=== PATIENT | male | born 1955 | race Caucasian/White ===

== ENCOUNTER 2023-09-02 21:19 | Observation (INO) | payer OTHER, SELFPAY ==
[2023-09-02] VITALS (8 sets, daily range): BP systolic 125–182; BP diastolic 75–97; BMI 16.1
--- NOTE | 2023-09-02 15:22 | ED.GENMED ---
History of Present Illness
General
Chief Complaint: Abdominal Symptoms
Source: patient
Exam Limitations: none
Time Seen by Provider: 09/02/23 15:03
Nursing documentation reviewed up to this point in time: agreed with
Travel History
Have you had any contact with someone who has COVID-19?: No
Do you have any symptoms of coronavirus? Fever > 100 degrees, chills, cough, shortness of breath, sore throat, loss of taste or smell, muscle aches, or headache?: No
History of Present Illness
History of Present Illness:
67-year-old male with past medical history of multiple abdominal surgeries after being diagnosed with multiple esophageal and gastric cancers is status post esophageal replacement as well as GJ tube placement in 2021 gastric bypass in 2021. Does
occasionally have discomfort flares does take oxycodone daily but ran out recently. He claims his last dose was this morning. Denies any chest pain has had intermittent vomiting has had ongoing nausea is able to consume by mouth does occasionally
use the GJ tube but claims that the GE tube portion of the GJ tube is currently clogged. The J-tube is currently working.
Past History
Past History
ED Past Medical History: Other (Questional Thorpe's esophagus)
ED Past Surgical History: Other (Fundoplication 08/2019 at [facility], gastric bypass surgery October 2021 in [place]. Has a G-tube)
Social History
Tobacco: Non-smoker
Alcohol: None
Personal: Single
Living: homeless
Employment: Not employed
Review of Systems
Review of Systems
Allergies reviewed?: Yes
All Other Systems: ROS reviewed and negative except as documented in HPI and ROS
Phy Exam
Physical Exam
Physical Exam:
GENERAL: Alert , in no apparent distress
EYE: pupils equal and reactive
NECK: Supple, no significant adenopathy.
ENT: o/p clr, mmm.
CARDIAC: Regular rate and rhythm .
LUNGS: Clear breath sounds bilaterally, no acute respiratory distress, no wheezes/rales/rhonchi
ABDOMEN: Discomfort to light palpation throughout the abdomen GJ tube placed no surrounding redness or warmth. Central incision to the abdomen
NEUROLOGICAL: Alert and oriented, no focal neuro deficits
SKIN: Warm and dry, skin intact.
MUSCULOSKELETAL: No edema, well perfused.
PSYCH: Normal and appropriate interaction.
Course
Orders/Labs/Results
Orders:
Orders
09/02/23 15:18
0.9% Sodium Chloride 1000 ml [Nss] 1,000 ml IV BOLUS
HYDROmorphone [Dilaudid] 1 mg IV NOW STA
Iohexol [Omnipaque] See Protocol PO NOW STA
Ondansetron Injectable [Zofran] 4 mg IV NOW STA
09/02/23 15:19
CT Abd/pel W Iv And Oral Contr Urgent
Comment:
Reason For Exam: abd pain, hx of esopageal replacement, fundoplicat
09/02/23 15:36
Complete Blood Count/With Diff Urgent
Comprehensive Metabolic Panel Urgent
09/02/23 15:38
EKG [Electrocardiogram (*1)] Urgent
Reason for Study: Abdominal Pain
EKG- Treatment ONCE
09/02/23 17:11
Urinalysis Reflex To Culture Urgent
Date Specimen was Collected: 09/02/23
Time Specimen was Collected: 17:09
09/02/23 17:16
HYDROmorphone [Dilaudid] 1 mg .ROUTE .STK-MED ONE
09/02/23 17:17
HYDROmorphone [Dilaudid] 1 mg IV NOW STA
09/02/23 17:56
Ondansetron Injectable [Zofran] 4 mg IV NOW STA
09/02/23 20:20
Potassium Chloride [KCl] 20 meq 0.9% Sodium Chloride 150 ml [Nss] 150 ml IV NOW
Abnormal Lab Results
09/02/23
15:36
RBC 4.50 L 10^6/uL
(4.70-6.10)
Hgb 12.8 L g/dL
(13.0-18.0)
Hct 37.0 L %
(39.0-52.0)
Abs Immat Gran (auto) 0.1 H 10^3/uL
(0-0.05)
Absolute Neuts (auto) 8.3 H 10^3/uL
(1.4-6.5)
Immature Gran % 0.6 H %
(0-0.5)
Neutrophils % 79.3 H %
(42.2-75.2)
Lymphocytes % 13.0 L %
(20.5-51.1)
Potassium 2.8 L mmol/L
(3.5-5.1)
Glucose 104 H mg/dl
(70-99)
09/02/23 15:36
09/02/23 15:36
Vital Signs
Initial and Last Documented VS:
Initial Vital Signs
Temp Pulse Resp BP Pulse Ox
98.1 F 55 16 125/75 98
09/02/23 14:51 09/02/23 14:51 09/02/23 14:51 09/02/23 14:51 09/02/23 14:51
Last Documented Vital Signs
Temp Pulse Resp BP Pulse Ox
98.1 F 57 12 180/84 100
09/02/23 14:51 09/02/23 17:30 09/02/23 17:30 09/02/23 17:13 09/02/23 17:07
MDM/Problems Addressed
MDM/Problems Addressed:
67-year-old male presenting to the emergency department today with concerns of abdominal discomfort over the past 4 days that has been significant has been taking his GERD medication Zofran and oxycodone but ran out this morning. Has had trouble
tolerating by mouth and has been vomiting. He claims that he does have a GJ tube in place and claims that he is able to use it but has not recently. Denies specific chest pain shortness of breath. Here patient significant uncomfortable was given
Dilaudid and Zofran. He claims that this improved his symptoms but still had dry heaving continuously. His potassium was found to be 2.8 was given a K rider. Otherwise CT scan without emergent findings but still ongoing significant symptoms.
Concerning his GJ tube is nonfunctional and is not able to tolerate by mouth plan to bring him in to have GJ tube replaced and further symptomatic control overnight.
*Critical Care Note
Total Time (30-74mins, 75-104mins- exclusive of procedures): Not Applicable
ED Attending Note
-
Portions of this chart may have been created with voice recognition software.� Occasional wrong word or��sound alike� substitutions may have occurred due to the inherent limitations of voice recognition software.
Discharge Plan
Departure
Patient Disposition: Home (Routine Discharge)
Date of Disposition: 09/02/23
Time of Disposition: 20:49
Patient with high blood pressure during this ER visit?: No
Condition: Good
Covid-19: Not Applicable
Discharge Problem:
Abdominal pain, Encounter for gastrojejunal (GJ) tube placement
Prescriptions:
No Action
omeprazole 40 mg Capsule,Delayed Release(Dr/Ec)
40 mg PO DAILY
dicyclomine 20 mg Tablet
20 mg PO BID-TID
oxycodone 5 mg/5 mL Solution
5 mg PO Q4HPRN PRN (Reason: severe pains)
ondansetron 8 mg Tablet,Disintegrating
8 mg PO [id number] PRN (Reason: nausea)
metoclopramide HCl [Reglan] 10 mg Tablet
10 mg PO BID
gabapentin 300 mg Capsule
300 mg PO BID
acetaminophen 325 mg Tablet
650 mg PO Q4HPRN PRN (Reason: mild pain/BRUNNER/temp> 100.4F) Qty: 0 0RF
sucralfate 1 gram Tablet
1 g PO ACHS Qty: 30 0RF
Referrals:
NONE,* [Family Provider] -
Interventions
Interventions:
*Risk Screen - Suicide Last Done: 09/02/23 16:02
*General Assessment Last Done: 09/02/23 16:02
*Neglect/Abuse Screening Last Done: 09/02/23 16:02
*ED COVID-19 Vaccine History Last Done: 09/02/23 14:51
QE-Civleg-Cqhshfufpg Assessment Last Done: 09/02/23 15:37
[2023-09-02] MEDS: OMNIPAQUE 50 ML PO (15:46)
[2023-09-02] MEDS: ZOFRAN 4 MG IV ×3 (15:46→23:25)
[2023-09-02] MEDS: DILAUDID 1 MG IV ×3 (15:47→21:31)
[2023-09-02] MEDS: NSS 1000 IV ×2 (15:47→23:24)
[2023-09-02 15:58] LABS: % Basophils 0.5 % (0-2); % Eosinophils 0.7 % (0-6); % Immature Granulocytes 0.6 % (0-0.5); % Monocytes 5.9 % (1.7-9.3); % Neutrophils 79.3 % (42.2-75.2); Absolute Basophils 0.1 10^3/uL (0-0.2); Absolute Eosinophils 0.1 10^3/uL (0-0.7); Absolute Immature Granulocytes 0.1 10^3/uL (0-0.05); Absolute Lymphocytes 1.4 10^3/uL (1.2-3.4); Absolute Monocytes 0.6 10^3/uL (0.1-0.6); Absolute Neutrophils 8.3 10^3/uL (1.4-6.5); Hemoglobin 12.8 g/dL (13.0-18.0); Mean Corp Hgb Conc. 34.6 g/dL (33.0-37.0); Mean Corpuscular Hgb 28.4 pg (27.0-31.0); Mean Corpuscular Volume 82.2 fL (80.0-94.0); Mean Platelet Volume 9.1 fL (7.4-10.4); Nucleated Red Blood Cells % 0 % (-); Platelet Count 340 10^3/uL (130-400); Red Cell Dist. Width 13.6 % (11.5-14.5); White Blood Cell Count 10.5 10^3/uL (4.8-10.8)
[2023-09-02 16:15] LABS: ALT (SGPT) 10 U/L (0-50); AST (SGOT) 17 U/L (17-59); Albumin 3.8 g/dl (3.5-5.0); Alkaline Phosphatase 59 U/L (38-126); Blood Urea Nitrogen 9 mg/dl (9-20); Calcium 9.3 mg/dl (8.4-10.2); Carbon Dioxide 29 mmol/L (22-30); Chloride 99 mmol/L (98-107); Glucose 104 mg/dl (70-99); Potassium 2.8 mmol/L (3.5-5.1); Sodium 137 mmol/L (135-145); Total Bilirubin 0.6 mg/dl (0.2-1.3); Total Protein 7.1 g/dl (6.3-8.2); eGFR > 60.00
[2023-09-02 17:27] LABS: Urine Albumin Negative (Neg - Trace); Urine Bilirubin Negative (Negative); Urine Character Clear (Clear); Urine Color Yellow; Urine Glucose Negative (Negative); Urine Ketone Negative (Negative); Urine Leukocyte Negative (Negative); Urine Nitrite Negative (Negative); Urine Occult Blood Negative (Negative); Urine Urobilinogen Negative (Neg - 1+)
--- NOTE | 2023-09-02 20:04 | HPS.HSE ---
Addendum entered and electronically signed by Lele Barrow MD 09/02/23 21:39:
Patient seen and examined independently with PROCEDURE TECH.� 67-year-old male past medical history of esophageal cancer status post esophageal replacement GJ tube, gastric bypass, fundoplication in 2021 , prior alcohol use disorder, GERD, presenting with
clogged GJ tube over the past week.� He has had nausea and vomiting and unable to flush the G tube portion.� He has some chronic cough which is at baseline.� Denies any fevers or chest pain or trouble breathing.� Labs show hypokalemia.� CT abdomen
pelvis shows left upper quadrant gastrostomy tube for which tube extends to the duodenum and into the jejunum.� There is also new basilar airspace disease the posterior medial aspect of both lung base consistent with bronchiolitis/pneumonia.
IV fluids.� Potassium replacement.� IR to exchange GJ tube tomorrow.� N.p.o. past midnight.� Clinically no evidence of pneumonia, will hold off on antibiotics at this time.� Single dose of Dilaudid as patient normally on liquid oxycodone for chronic
abdominal pain.
Original Note:
Family Physician
-
Family Physician: * NONE
Chief Complaint
-
Nausea, vomiting, belching, clogged G-tube
History of Present Illness
67-year-old male complains of intermittent vomiting with ongoing nausea reports his GJ tube is currently clogged the J-tube is apparently working. He reports he is burping and vomiting with constant nausea. He is unable to flush or withdrawal
anything from the G-tube portion of his GJ tube. He reports he uses occasionally for medications. He reports running out of his oxycodone liquid at 6 AM this morning.. He had multiple abdominal surgeries after history of esophageal gastric cancer
status post esophageal replacement as well as GJ tube 2021, gastric bypass October 2021 in [place], fundoplication August 2019 at [facility]. Other past medical history includes chronic pain on chronic oral opiates, prior alcohol abuse stopped 2015, GERD.
Medical History
Past Medical History
Past Medical History: Reports Other
Additional Past Medical History:
esophageal gastric cancer status post esophageal replacement as well as GJ tube 2021
gastric bypass October 2021 in [place]
fundoplication August 2019 at [facility]
chronic oral opiates, prior alcohol abuse stopped 2015
GERD.
Past Surgical History: Reports Other (08/2019: Fundoplication at [facility] 10/2021: Gastric bypass in [place] when he was living with his sister for 4 years.)
Social History
Tobacco: Non-smoker
Alcohol: Former (quit 2015)
Drug: None
Personal: Single
Living: Homeless (living on [address] [facility])
Employment: Retired
Family History
Family History: Other (mother age 95 living [place], father from covid in 2021 hx copd)
Allergies / Home Medications
Allergies reflects when Allergies were last updated in [facility].
Home Medications with original date entered in [facility]
Allergy/Medication List:
Allergies
Allergy/AdvReac Type Severity Reaction Status Date / Time
No Known Allergies Allergy Verified 09/02/23 14:53
Home Medications
dicyclomine 20 mg tablet 20 mg PO BID stomach cramps 05/18/23
gabapentin 300 mg capsule 300 mg PO HS 05/18/23
metoclopramide HCl 10 mg tablet (Reglan) 10 mg PO DAILY 05/18/23
omeprazole 40 mg capsule,delayed release 40 mg PO BID GERD 05/18/23
oxycodone 5 mg/5 mL oral solution 5 mg PO Q4HPRN PRN severe pain 05/18/23
sucralfate 1 gram tablet 1 g PO ACHS Gastrointestinal issue #30 tabs 05/19/23
ibuprofen 200 mg capsule 400 mg PO HS 09/02/23
Review of Systems
-
History Source: Patient
A 12 point ROS was completed and negative except as noted: Yes
Constitutional: Denies Fever
EENT: Denies Sore Throat or Runny Nose
Respiratory: Denies Cough or Trouble Breathing
Cardiac: Denies Chest Pain or Diaphoresis
Abdomen/GI: Reports Abdominal Pain, Nausea, Vomiting and Other (dyspepsia); Denies Diarrhea, Constipated or Bloody Stools
: Denies Dysuria, Frequency, Flank Pain, Incontinence or Difficulty Voiding
Musculoskeletal: Denies Joint Pain or Edema
Skin: Denies Itching or Rash
Neurological: Denies Dizzy, Headache or Weakness
Endocrine: Reports No Symptoms
Hematologic/Lymphatic: Reports No Symptoms
Psych: Reports Calm
Physical Exam
Vital Signs
Vital Signs
Temp Pulse Resp BP Pulse Ox
98.1 F 57 12 180/84 100
09/02/23 14:51 09/02/23 17:30 09/02/23 17:30 09/02/23 17:13 09/02/23 17:07
Physical Exam
General: Comfortable, Conversant and Pain; No Fever or Chills
HEENT: NormoCephalic, Anicteric, PERRLA, [place] Conjunctivae and No Ptosis
Respiratory: Clear; No Wheezes, Rales, Rhonchi or Crackles
Cardiac: S1/S2 and Regular Rhythm; No Murmur, Rub, Gallop or Peripheral Edema
Breast: Deferred by me
GI: Soft, Non Tender, Non Distended and Normal Bowel Sounds
Rectal: Deferred by Provider
Genito-urinary: Deferred by me
Musculoskeletal: No Clubbing, No Cyanosis and No Edema
Skin: Warm and Dry; No Rash or Jaundice
Neuro: AO x 3, No Motor Deficits, Nonfocal/grossly intact, Cranial Nerves Intact and No Sensory Deficits; No Slurred Speech, Facial Droop or Tremors
Psych: Calm
Laboratory Results
-
09/02/23 15:36
09/02/23 15:36
Laboratory Results
Total Bilirubin 0.6 mg/dl (0.2-1.3) 09/02/23 15:36
AST 17 U/L (17-59) 09/02/23 15:36
ALT 10 U/L (0-50) 09/02/23 15:36
Alkaline Phosphatase 59 U/L (38-126) 09/02/23 15:36
Impression/Plan
-
Impression/plan:
Admit to telemetry
#Malfunction G tube? History of J-tube also secondary to esophageal cancer 2021 with repair
-Patient reports flushes daily occasionally uses for medications advised patient not to use for omeprazole as this will clog the tube
Recommend asking PCP for oral dissolving Prevacid or liquid version
-N.p.o. for replacement tomorrow by IR
-IV NSS
-IV Zofran as needed
CT abdomen pelvis with IV and oral contrast:
1. New airspace disease at the posterior medial aspect of both lung bases consistent with bronchiolitis/pneumonia
2. Stable postop changes consistent with prior esophogastric surgery left upper quadrant gastrostomy tube from which tubing extends through the duodenum into the jejunum
3. 7 mm low-density lesion right lobe of the liver too small to characterize likely complex cyst
4. DDD L5-S1
# incidental finding on Ct
-No clinical indication of PNa afebrile, no cough
#Hypokalemia hypovolemic
K2.8
IV K rider 20 mEq now and 40 mEq in a.m.
-Will check magnesium
-EKG: Sinus bradycardia 53 bpm, QTc 418 MS
#GERD
IV Protonix [address] of omeprazole via G-tube
#Chronic pain/abdominal cramps
Takes liquid oxycodone 5 mg per 1 mL every 4 hours as needed( 450 ml every [address] lawrence in [place] filled 08/06 [facility])
- will give prn IV dilaudid
- takes reglan po will hold
#Prior alcohol abuse
Stopped in 2015
DVT prophylaxis
SCDs
Full code
[2023-09-02] MEDS: KCL 160 MEQ IV (21:04)
[2023-09-02 21:56] LABS: Magnesium 1.7 mg/dl (1.6-2.3)
--- NOTE | 2023-09-02 23:00 | PTCARENOTE ---
Received patient from ED via stretcher. Pt AAOX3. SB on equipment monitor phototypesetting. Pox: 97% RA. Call clarke within reach. Plan of care ongoing.
[2023-09-02] MEDS: PROTONIX IV 40 MG IV (23:24)
[2023-09-02] MEDS: KCL 270 MEQ IV (23:24)
[2023-09-02] MEDS: NSS (PRESERVATIVE FREE) 10 ML IV (23:25)
[2023-09-03] VITALS (10 sets, daily range): BP systolic 53–172; BP diastolic 64–97; BMI 16.1
[2023-09-03] MEDS: DILAUDID 0.5 MG IV ×5 (02:05→21:09)
[2023-09-03] MEDS: FLUSH (NSS) 1 FLUSH IV (02:05)
[2023-09-03 06:00] LABS: % Basophils 0.7 % (0-2); % Eosinophils 1.7 % (0-6); % Immature Granulocytes 0.6 % (0-0.5); % Lymphocytes 22.1 % (20.5-51.1); % Monocytes 7.1 % (1.7-9.3); % Neutrophils 67.8 % (42.2-75.2); Absolute Basophils 0.1 10^3/uL (0-0.2); Absolute Eosinophils 0.1 10^3/uL (0-0.7); Absolute Lymphocytes 1.6 10^3/uL (1.2-3.4); Absolute Monocytes 0.5 10^3/uL (0.1-0.6); Absolute Neutrophils 4.9 10^3/uL (1.4-6.5); Hematocrit 33.1 % (39.0-52.0); Hemoglobin 11.5 g/dL (13.0-18.0); Mean Corp Hgb Conc. 34.7 g/dL (33.0-37.0); Mean Corpuscular Hgb 28.6 pg (27.0-31.0); Mean Corpuscular Volume 82.3 fL (80.0-94.0); Mean Platelet Volume 9.3 fL (7.4-10.4); Nucleated Red Blood Cells % 0 % (-); Platelet Count 292 10^3/uL (130-400); Red Blood Cell Count 4.02 10^6/uL (4.70-6.10); Red Cell Dist. Width 13.6 % (11.5-14.5); White Blood Cell Count 7.2 10^3/uL (4.8-10.8)
[2023-09-03 06:34] LABS: ALT (SGPT) < 10 U/L (0-50); AST (SGOT) 12 U/L (17-59); Albumin 3.2 g/dl (3.5-5.0); Alkaline Phosphatase 68 U/L (38-126); Blood Urea Nitrogen 5 mg/dl (9-20); Calcium 8.8 mg/dl (8.4-10.2); Carbon Dioxide 26 mmol/L (22-30); Chloride 102 mmol/L (98-107); Estimated Creatinine Clearance 96 ml/min; Glucose 91 mg/dl (70-99); Sodium 136 mmol/L (135-145); Total Bilirubin 0.5 mg/dl (0.2-1.3); Total Protein 6.2 g/dl (6.3-8.2); eGFR > 60.00
[2023-09-03 06:39] LABS: Potassium 3.5 mmol/L (3.5-5.1)
[2023-09-03] MEDS: NSS (PRESERVATIVE FREE) 10 ML IV (08:07)
[2023-09-03] MEDS: PROTONIX IV 40 MG IV (08:07)
--- NOTE | 2023-09-03 09:18 | PTOTSP ---
attempted intervention, pt aggressive, verbally defiant and dismissive of therapists when unable to provide pain medication immediately despite initially agreeing to therapy intervention. RN notified of pt's behavior. will sign off per pt's request.
--- NOTE | 2023-09-03 09:31 | W.PN.HOSP.TC ---
Today's Communication/Plan
-
Plan for IR G-tube replacement. Speech therapy eval.
Assessment / Plan
Assessment / Plan
Physical Exam:
General: Comfortable, Conversant and Pain; No Fever or Chills
HEENT: NormoCephalic, Anicteric, PERRLA, [place] Conjunctivae and No Ptosis
Respiratory: Clear; No Wheezes, Rales, Rhonchi or Crackles
Cardiac: S1/S2 and Regular Rhythm; No Murmur, Rub, Gallop or Peripheral Edema
Breast: Deferred by me
GI: Soft, Non Tender, Non Distended and Normal Bowel Sounds
Rectal: Deferred by Provider
Genito-urinary: Deferred by me
Musculoskeletal: No Clubbing, No Cyanosis and No Edema
Skin: Warm and Dry; No Rash or Jaundice
Neuro: AO x 3, No Motor Deficits, Nonfocal/grossly intact, Cranial Nerves Intact and No Sensory Deficits; No Slurred Speech, Facial Droop or Tremors
Psych: Calm
A/P:
#Malfunction G tube?� History of J-tube also secondary to esophageal cancer 2021 with repair
-Patient reports flushes daily occasionally uses for medications advised patient not to use for omeprazole as this will clog the tube
Recommend asking PCP for oral dissolving Prevacid or liquid version
-N.p.o. for replacement today by IR
-Speech therapy to evaluate for swallowing eval.
-IV NSS
-IV Zofran as needed
� � � � � � � CT abdomen pelvis with IV and oral contrast:
�� � � � � � 1.� New airspace disease at the posterior medial aspect of both lung bases consistent with bronchiolitis/pneumonia
�� � � � � � 2.� Stable postop changes consistent with prior esophogastric surgery left upper quadrant gastrostomy tube from which tubing extends through the duodenum into the jejunum
�� � � � � � 3.� 7 mm low-density lesion right lobe of the liver too small to characterize likely complex cyst
� � � � � � � 4.� DDD L5-S1
# incidental finding on Ct
-No clinical indication of PNa afebrile, no cough
#Hypokalemia hypovolemic
K2.8--> 3.5
IV K rider 20 mEq now and 40 mEq in a.m.
-Will check magnesium
-EKG: Sinus bradycardia 53 bpm, QTc 418 MS
#GERD
IV Protonix [address] of omeprazole via G-tube
#Chronic pain/abdominal cramps
Takes liquid oxycodone 5 mg per 1 mL every 4 hours as needed( 450 ml every [address] lawrence in [facility] 08/06 [facility])
- will give prn IV dilaudid
- takes reglan po will hold
#Prior alcohol abuse
Stopped in 2015
DVT prophylaxis
SCDs
Full code
Anticipated Discharge: Today
Subjective/Interval History
-
Date of Service: September 03, 2023
He is concerned about his tube is clogged. He does have chronic pain. No cough. No shortness of breath. Afebrile
Objective Data
-
Labs:
Laboratory Results
09/03/23
05:29
WBC 7.2
Hgb 11.5 L
Hct 33.1 L
Plt Count 292
Sodium 136
Potassium 3.5
Chloride 102
Carbon Dioxide 26
BUN 5 L
Creatinine 0.5 L
Glucose 91
Calcium 8.8
Total Bilirubin 0.5
AST 12 L
ALT < 10
Alkaline Phosphatase 68
Vital Signs:
Vital Signs
Temp Pulse Resp BP Pulse Ox
98.4 F 54 16 127/64 99
09/03/23 07:00 09/03/23 07:00 09/03/23 07:00 09/03/23 07:00 09/03/23 07:00
I&O
09/02/23 09/03/23 09/04/23
06:59 06:59 06:59
Output Total 700 / 700
Balance -700 / -700
--- NOTE | 2023-09-03 09:36 | PTCARENOTE ---
Patient ripped of telemetry leads, refusing to have them replaced; Educated patient on telemetry orders and on importance of maintaining telemetry; Patient stated 'I don't care'
--- NOTE | 2023-09-03 10:21 | PTCARENOTE ---
Dr. Garcia notified of patient's refusal to wear telemetry leads; No further orders or interventions at this time
--- NOTE | 2023-09-03 11:37 | CM ---
Addendum entered by Kisha Wheatley RN 09/03/23 13:34:
The patient's status changed to observational status. DOOLEY letter provided and explained. The patient had not questions with regards to the letter.
Original Note:
Reviewed the chart notes and spoke with the patient at the bedside. Patient currently is residing in a friends three story home with two steps to enter. The patient reports living in the basement. The patient reports having a cane and a Xfinity
pump for TFs. The patient report no VN, but has been to [facility] in the past. The patient confirmed his [facility] of [facility]. The patient anticipates having his G-J tube replaced today due to
current one being clogged. Speech evaluation pending. CM continues to be available to patient/family and is monitoring medical plan for needs at discharge.
Plan: Discharge plans will depend on the patient's progress.
[2023-09-03] MEDS: NSS IV (12:10)
--- NOTE | 2023-09-03 13:44 | TRANSFER ---
Patient to IRAD for procedure
--- NOTE | 2023-09-03 15:07 | PTCARENOTE ---
Patient returned from IR in stretcher; Ambulated to bathroom; Assessment ongoing
[2023-09-03] MEDS: APRESOLINE 10 MG IV (16:38)
[2023-09-03] MEDS: ZOFRAN 4 MG IV (17:38)
[2023-09-03] MEDS: ROXICODONE ORAL SOLUTION 5 MG PO (22:05)
[2023-09-03] MEDS: NEURONTIN 300 MG PO (22:05)
[2023-09-04] MEDS: ZOFRAN 4 MG IV ×2 (00:12→05:38)
[2023-09-04] MEDS: ROXICODONE ORAL SOLUTION 5 MG PO ×3 (03:10→14:46)
[2023-09-04] MEDS: APRESOLINE 10 MG IV (03:10)
--- NOTE | 2023-09-04 03:32 | DOWNTIME ---
There was a [facility] Client Environmental Science Professor Downtime on 09/04/2023 from 0100 to 09/04/2023 at 0322. Downtime documentation of patient's care, including medication administrations, has been reconciled in the electronic record per guidelines. Refer to the
patient's paper chart under the miscellaneous tab to see printed paper medication records and downtime forms.
[2023-09-04 03:33] VITALS: BP 171/99
--- NOTE | 2023-09-04 03:40 | PTCARENOTE ---
pt agressive, screaming, and yelling at this RN, and other staff regarding. GJ tube and pain management. S/w Bernadette Nieves LOCAL SALES ASSOCIATE- see MAR regarding new orders. GJ tube in place.
pt refusing to wear tele. informed Bernadette Nieves LOCAL SALES ASSOCIATE
pt resting in bed w/ call bel in reach
[2023-09-04] MEDS: DILAUDID 0.5 MG IV (04:29)
[2023-09-04] MEDS: TYLENOL 650 MG PO ×3 (05:45→14:49)
--- NOTE | 2023-09-04 05:45 | PTCARENOTE ---
pt started to c/o headache - provided w/ cold compress and prn tylenol. pt given zofran for n/v; however pt is coughing a lot of sputum. no gastric contents. pt w/ basin and call clarke in reach
[2023-09-04 06:18] LABS: Hematocrit 40.2 % (39.0-52.0); Hemoglobin 13.8 g/dL (13.0-18.0); Mean Corp Hgb Conc. 34.3 g/dL (33.0-37.0); Mean Corpuscular Hgb 28.5 pg (27.0-31.0); Mean Corpuscular Volume 82.9 fL (80.0-94.0); Mean Platelet Volume 9.7 fL (7.4-10.4); Platelet Count 373 10^3/uL (130-400); Red Blood Cell Count 4.85 10^6/uL (4.70-6.10); Red Cell Dist. Width 13.8 % (11.5-14.5); White Blood Cell Count 12.5 10^3/uL (4.8-10.8)
[2023-09-04 06:43] LABS: Blood Urea Nitrogen 7 mg/dl (9-20); Calcium 9.7 mg/dl (8.4-10.2); Carbon Dioxide 22 mmol/L (22-30); Chloride 98 mmol/L (98-107); Estimated Creatinine Clearance 96 ml/min; Glucose 120 mg/dl (70-99); Magnesium 1.7 mg/dl (1.6-2.3); Potassium 3.8 mmol/L (3.5-5.1); Sodium 136 mmol/L (135-145); eGFR > 60.00
--- NOTE | 2023-09-04 07:22 | W.PN.HOSP.TC ---
Addendum entered and electronically signed by Bryan Garcia MD 09/04/23 13:17:
Severe protein calorie malnutrition.
Opioid dependence.
Original Note:
Today's Communication/Plan
-
Continue current management. Discharge planning in progress
Assessment / Plan
Assessment / Plan
Physical Exam:
General: Comfortable, Conversant and Pain; No Fever or Chills
HEENT: NormoCephalic, Anicteric, PERRLA, [place] Conjunctivae and No Ptosis
Respiratory: Clear; No Wheezes, Rales, Rhonchi or Crackles
Cardiac: S1/S2 and Regular Rhythm; No Murmur, Rub, Gallop or Peripheral Edema
Breast: Deferred by me
GI: Soft, Non Tender, Non Distended and Normal Bowel Sounds
Rectal: Deferred by Provider
Genito-urinary: Deferred by me
Musculoskeletal: No Clubbing, No Cyanosis and No Edema
Skin: Warm and Dry; No Rash or Jaundice
Neuro: AO x 3, No Motor Deficits, Nonfocal/grossly intact, Cranial Nerves Intact and No Sensory Deficits; No Slurred Speech, Facial Droop or Tremors
Psych: Calm
A/P:
#Malfunction G tube?� History of J-tube also secondary to esophageal cancer 2021 with repair
-Patient reports flushes daily occasionally uses for medications advised patient not to use for omeprazole as this will clog the tube
Recommend asking PCP for oral dissolving Prevacid or liquid version
-IR replaced G-tube on 09/02
-Speech therapy said he is okay for regular diet
-Stopped IV fluids
-Since he is able to maintain calorie and weight with oral nutrition he might not need feeding tube anymore so encouraged to discuss with her outpatient oncologist and primary care to possibly remove the tube as outpatient.
Prior to today:
-IV Zofran as needed
� � � � � � � CT abdomen pelvis with IV and oral contrast:
�� � � � � � 1.� New airspace disease at the posterior medial aspect of both lung bases consistent with bronchiolitis/pneumonia
�� � � � � � 2.� Stable postop changes consistent with prior esophogastric surgery left upper quadrant gastrostomy tube from which tubing extends through the duodenum into the jejunum
�� � � � � � 3.� 7 mm low-density lesion right lobe of the liver too small to characterize likely complex cyst
� � � � � � � 4.� DDD L5-S1
# incidental finding on Ct
-No clinical indication of PNa afebrile, no cough
#Hypokalemia hypovolemic
K2.8--> 3.8
Prior to today:
IV K rider 20 mEq now and 40 mEq in a.m.
-Will check magnesium
-EKG: Sinus bradycardia 53 bpm, QTc 418 MS
#GERD
IV Protonix 40 mg daily
He is not taking omeprazole via G-tube. He is able to take oral intake and taking his medications orally.
#Chronic pain/abdominal cramps
Takes liquid oxycodone 5 mg per 1 mL every 4 hours as needed( 450 ml every [address] lawrence in [facility] 08/06 [facility] He does have a contract with pain clinic as outpatient and he is aware should not increase pain medication without
reevaluation.
- will give prn IV dilaudid
- takes reglan po will hold
#Prior alcohol abuse
Stopped in 2015
DVT prophylaxis
SCDs
Full code
Anticipated Discharge: Today
Subjective/Interval History
-
Date of Service: September 04, 2023
Patient feels well overall. He has some pain but is mostly his chronic pain. He does have a contract with pain clinic as outpatient and he is aware should not increase pain medication without reevaluation.
Objective Data
-
Labs:
Laboratory Results
09/04/23
05:08
WBC 12.5 H
Hgb 13.8
Hct 40.2
Plt Count 373 D
Sodium 136
Potassium 3.8
Chloride 98
Carbon Dioxide 22
BUN 7 L
Creatinine 0.6 L
Glucose 120 H
Calcium 9.7
Vital Signs:
Vital Signs
Temp Pulse Resp BP Pulse Ox
97.9 F 58 16 171/99 96
09/04/23 03:33 09/04/23 03:33 09/04/23 03:33 09/04/23 03:33 09/04/23 03:33
I&O
09/03/23 09/04/23 09/05/23
06:59 06:59 06:59
Output Total 700 / 700 980 / 980
Balance -700 / -700 -980 / -980
[2023-09-04 07:40] VITALS: BP 113/70
--- NOTE | 2023-09-04 09:12 | PN.CDI ---
CDI
- -
CDI:
Physician Documentation Request
Admit Date: 09/02/23 21:19
Dear Doctor Radha,
Patient admitted for G tube malfunction.
ED Physician Documentation: 'Does occasionally have discomfort flares does take oxycodone daily but ran out recently.'
08/31 Hospitalist PN: 'Chronic pain/abdominal cramps. Takes liquid oxycodone 5 mg per 1 mL every 4 hours as needed'
If possible, please provide further specificity as outlined below:
Opioid dependence
Opioid use
Other
Use of terms such as suspected, likely, concern for, or probable (associated with a specific diagnosis that is being evaluated, monitored, or treated as if it exists) are acceptable and can be coded in the inpatient setting, when documented at the
time of discharge.
Thank you,
Madison Loredo RN, BSN
CDI Specialist
Available via [place] text
Please use your independent medical judgment in providing your response.
--- NOTE | 2023-09-04 09:18 | PN.CDI ---
CDI
- -
CDI:
Physician Documentation Request
Admit Date: 09/02/23 21:19
Dear Doctor Radha,
Patient admitted for GJ tube malfunction.
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
Based on the information, which of the following most accurately represents the patient's nutritional status?
Severe protein calorie malnutrition
Other
[place] Criteria ([facility] Hospitalist 2017)
2 or more criteria must be present for either
non severe or severe malnutrition
Note that the criteria differs related to the
presence of an acute or chronic illness
Acute Illness Chronic Illness
Energy Intake Non Severe: <75% for >7 days Non Severe: <75% for >1 month
Severe: <50% for >5 days Severe: <75% for >1 month
Weight Loss Non Severe: 1-2% over 1 week Non Severe: 5% over 1 month
5% over 1 month 7.5% over 3 months
7.5% over 3 months 10% over 6 months
1 year N/A 20% over 1 year
Severe: >2% over 1 week Severe: >5% over 1 month
>5% over 1 month >7.5% over 3 months
>7.5% over 3 months >10% over 6 months
1 year N/A >20% over 1 year
Body Fat Non Severe: Mild Decrease Non Severe: Mild Loss
Severe: Moderate Decrease Severe: Severe Loss
Muscle Mass Non Severe: Mild Decrease Non Severe: Mild Loss
Severe: Moderate Decrease Severe: Severe Loss
Fluid Accumulation Non Severe: Mild Accumulation Non Severe: Mild Accumulation
Severe: Moderate to severe Severe: Moderate to severe
accumulation accumulation
Reduced Crew Boss Strength Non Severe: N/A Non Severe: N/A
Severe: Measurably reduced Severe: Measurably reduced
Use of terms such as suspected, likely, concern for, or probable (associated with a specific diagnosis that is being evaluated, monitored, or treated as if it exists) are acceptable and can be coded in the inpatient setting, when documented at the
time of discharge.
Thank you,
Madison Loredo RN, BSN
CDI Specialist
Available via [place] text
Please use your independent medical judgment in providing your response.
[2023-09-04] MEDS: PROTONIX IV 40 MG IV (09:42)
[2023-09-04] MEDS: NSS (PRESERVATIVE FREE) 10 ML IV (09:43)
[2023-09-04 11:25] VITALS: BP 110/60
--- NOTE | 2023-09-04 13:01 | W.DCSUMMARY ---
Discharge Summary
Discharge Data
Date of Admission: 09/02/23
Date of Discharge: 09/04/23
-
Pending Results: No
Hospital Course
Patient is 67 years old male with history of esophageal cancer status post treatment and G-tube in place, chronic pain with narcotic dependence, came into the hospital with nausea vomit and G-tube occlusion. He had some electrolyte abnormalities
that were replaced, he was started on IV fluids, pain medications and antiemetics. IR consulted and they replaced G-tube. There was some concerns for possible pneumonia by CT of the abdomen but there was no clinical evidence of pneumonia, no cough
or shortness of breath or fevers. There is some confusion initially upon admission of the patient was not taking oral intake but he does take oral intake and has been able to keep up with calories and nutrition and uses his feeding tube only
sparingly. At this point, recommended to discuss with his outpatient providers to see if he can discontinue his feeding tube. PT attempted to evaluate patient but he dismissed them. In any event, he has been ambulating well and back to his
baseline. He is good to be discharged in relatively stable condition today.
Discharge duration: 34 minutes
Discharge Plan
-
Patient Disposition: Home (Routine Discharge)
Discharge Diagnosis/Procedures: Malfunction gastric tube. Hypokalemia. Chronic pain, narcotic dependence.
Diet: Low Cholesterol
Driving Restrictions: As prior to admission
Blood Work: Please PCP to order CBC, BMP within 1 week
Referrals:
Primary care, provider [Other] (Please see less than 1 week)
Prescriptions:
Continued
omeprazole 40 mg Capsule,Delayed Release(Dr/Ec)
40 mg PO BID
dicyclomine 20 mg Tablet
20 mg PO BID
oxycodone 5 mg/5 mL Solution
5 mg PO Q4HPRN PRN (Reason: severe pain)
Patient Comments:
09/02/2023: last filled 08/06/23, 450 ml for 30 days from [facility]
metoclopramide HCl [Reglan] 10 mg Tablet
10 mg PO DAILY
gabapentin 300 mg Capsule
300 mg PO HS
sucralfate 1 gram Tablet
1 g PO ACHS Qty: 30 0RF
ibuprofen 200 mg Capsule
400 mg PO HS
Discharge Orders:
Discharge Patient (As Directed); Ordered 09/04/23
Ordered By: Bryan Garcia
Discharge Date and Time
Print Language: TURKMEN
== END 2023-09-04 16:19 | disposition home or self-care (01) ==
LOC: 2 SOUTH 21:19
PROVIDERS: Clinical Nurse Specialist Family Health; Physician Assistant; ADMITTING PHYSICIAN Hospitalist; ATTENDING PHYSICIAN Hospitalist; EMERGENCY PHYSICIAN Emergency Medicine
DX: K94.23 Gastrostomy malfunction (principal); Y83.2 Surgical operation with anastomosis, bypass or graft as the cause of abnormal reaction of the patient, or of later complication, without mention of misadventure at the time of the procedure; Y73.2 Prosthetic and other implants, materials and accessory gastroenterology and urology devices associated with adverse incidents; Y92.9 Unspecified place or not applicable; F11.20 Opioid dependence, uncomplicated; E43 Unspecified severe protein-calorie malnutrition; Z68.1 Body mass index [BMI] 19.9 or less, adult; K21.9 Gastro-esophageal reflux disease without esophagitis; K80.20 Calculus of gallbladder without cholecystitis without obstruction; F10.11 Alcohol abuse, in remission; E87.6 Hypokalemia; M51.37 Other intervertebral disc degeneration, lumbosacral region; G89.29 Other chronic pain; Z46.59 Encounter for fitting and adjustment of other gastrointestinal appliance and device; Z98.84 Bariatric surgery status; Z85.01 Personal history of malignant neoplasm of esophagus; Z85.028 Personal history of other malignant neoplasm of stomach; Z87.19 Personal history of other diseases of the digestive system
CPT/HCPCS: 49452; 74177; 80048; 80053; 81003; 83735; 85025; 85027; 93005; 96361; 96374; 96375; 96376; 99285; C1769; G0378; Q9967

== ENCOUNTER 2023-11-26 19:19 | Emergency (ER) | payer OTHER, SELFPAY ==
[2023-11-26 19:23] VITALS: BP 121/70
[2023-11-26] MEDS: DILAUDID 1 MG IV (19:57)
[2023-11-26 20:05] VITALS: BMI 15.2
[2023-11-26 20:07] VITALS: BP 138/84
[2023-11-26 20:31] LABS: % Basophils 0.6 % (0-2); % Eosinophils 1.8 % (0-6); % Immature Granulocytes 0.3 % (0-0.5); % Lymphocytes 24.4 % (20.5-51.1); % Monocytes 6.6 % (1.7-9.3); % Neutrophils 66.3 % (42.2-75.2); Absolute Eosinophils 0.1 10^3/uL (0-0.7); Absolute Lymphocytes 1.5 10^3/uL (1.2-3.4); Absolute Monocytes 0.4 10^3/uL (0.1-0.6); Absolute Neutrophils 4.1 10^3/uL (1.4-6.5); Hematocrit 37.1 % (39.0-52.0); Hemoglobin 13.4 g/dL (13.0-18.0); Mean Corp Hgb Conc. 36.1 g/dL (33.0-37.0); Mean Corpuscular Hgb 29.7 pg (27.0-31.0); Mean Corpuscular Volume 82.3 fL (80.0-94.0); Mean Platelet Volume 9.5 fL (7.4-10.4); Nucleated Red Blood Cells % 0 % (-); Platelet Count 204 10^3/uL (130-400); Red Blood Cell Count 4.51 10^6/uL (4.70-6.10); Red Cell Dist. Width 14.4 % (11.5-14.5); White Blood Cell Count 6.2 10^3/uL (4.8-10.8)
[2023-11-26 20:45] LABS: ALT (SGPT) 11 U/L (0-50); AST (SGOT) 17 U/L (17-59); Alkaline Phosphatase 61 U/L (38-126); Blood Urea Nitrogen 10 mg/dl (9-20); Calcium 9.8 mg/dl (8.4-10.2); Carbon Dioxide 25 mmol/L (22-30); Chloride 102 mmol/L (98-107); Estimated Creatinine Clearance 67 ml/min; Glucose 114 mg/dl (70-99); Lipase 48 U/L (23-300); Potassium 3.6 mmol/L (3.5-5.1); Sodium 137 mmol/L (135-145); Total Bilirubin 0.9 mg/dl (0.2-1.3); Total Protein 6.8 g/dl (6.3-8.2); eGFR > 60.00
[2023-11-26 21:00] VITALS: BP 127/78
[2023-11-26] MEDS: NSS 1000 IV (22:43)
[2023-11-26 22:46] VITALS: BP 153/87
--- NOTE | 2023-11-26 22:53 | ED.GENMED ---
History of Present Illness
General
Chief Complaint: Cancer Problem
Source: patient
Exam Limitations: none
Time Seen by Provider: 11/26/23 19:29
Travel History
Have you had any contact with someone who has COVID-19?: No
Do you have any symptoms of coronavirus? Fever > 100 degrees, chills, cough, shortness of breath, sore throat, loss of taste or smell, muscle aches, or headache?: No
History of Present Illness
History of Present Illness:
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 This has been getting worse over several days. He is prescribed
oxycodone syrup which he takes regularly. He states he is running out. He also thinks that the GJ tube that he has may have been inadvertently pulled out. He is in the process of switching doctors from [place] to [place]. No fevers. No
other complaints at this time
Past History
Past History
ED Past Medical History: Other (Questional Thorpe's esophagus)
ED Past Surgical History: Other (Fundoplication 08/2019 at [place], gastric bypass surgery October 2021 in [place]. Has a G-tube)
Social History
Tobacco: Non-smoker
Alcohol: None
Personal: Single
Living: homeless
Employment: Not employed
Phy Exam
Physical Exam
Physical Exam:
General: Cachectic appearing male no acute respiratory distress
HEENT: Normocephalic neck is supple
Heart: Regular rate and rhythm no murmurs
Lungs: Clear no wheeze or rales
Abdomen soft tender diffusely G-tube present no surrounding erythema
Extremities: No cyanosis or edema
Course
Orders/Labs/Results
Orders:
Orders
11/26/23 19:49
HYDROmorphone [Dilaudid] 1 mg IV NOW STA
11/26/23 19:50
CT Abd/pelvis W Iv Cont Urgent
Comment:
Reason For Exam: abdominal pain
11/26/23 19:57
Complete Blood Count/With Diff Urgent
Comprehensive Metabolic Panel Urgent
Lipase Urgent
11/26/23 22:34
0.9% Sodium Chloride 1000 ml [Nss] 1,000 ml IV BOLUS
Abnormal Lab Results
11/26/23
19:57
RBC 4.51 L 10^6/uL
(4.70-6.10)
Hct 37.1 L %
(39.0-52.0)
Glucose 114 H mg/dl
(70-99)
11/26/23 19:57
11/26/23 19:57
Vital Signs
Initial and Last Documented VS:
Initial Vital Signs
Temp Pulse Resp BP Pulse Ox
98.9 F 61 17 121/70 99
11/26/23 19:23 11/26/23 19:23 11/26/23 19:23 11/26/23 19:23 11/26/23 19:23
Last Documented Vital Signs
Temp Pulse Resp BP Pulse Ox
98.9 F 61 17 127/78 98
11/26/23 19:23 11/26/23 19:23 11/26/23 19:23 11/26/23 21:00 11/26/23 21:00
MDM/Problems Addressed
Differential Diagnosis Includes:
Abdominal pain. Possible dislodged G-tube. Question infectious or obstruction will check labs and CT of abdomen.
*Critical Care Note
Total Time (30-74mins, 75-104mins- exclusive of procedures): Not Applicable
Update Note
Update Note:
CT of the abdomen demonstrates J-tube that is stable and in the appropriate position no other acute finding noted on CT. Patient was given a dose of pain medicine here. States he is running out and is requesting a short supply to go home with.
Patient has acute on chronic abdominal pain. PDMP reviewed. He did receive a prescription 14 days ago. He states he has some left but will not have enough till he sees the doctor again. Did agree to prescribe a small amount to get him through.
No indication for admission at this time.
ED Attending Note
-
Portions of this chart may have been created with voice recognition software.� Occasional wrong word or��sound alike� substitutions may have occurred due to the inherent limitations of voice recognition software.
Discharge Plan
Departure
Patient Disposition: Home (Routine Discharge)
Date of Disposition: 11/26/23
Time of Disposition: 22:57
Patient with high blood pressure during this ER visit?: No
Discharge Problem:
Abdominal pain
Prescriptions:
New
oxycodone 5 mg/5 mL solution
5 mg PO Q8H PRN (Reason: Pain) Qty: 60 0RF
No Action
omeprazole 40 mg Capsule,Delayed Release(Dr/Ec)
40 mg PO BID
oxycodone 5 mg/5 mL Solution
5 mg PO Q4HPRN PRN (Reason: severe pain)
Patient Comments:
11/26/2023: last filled 11/12/23, 500 ml for 25 days from [facility]. Prescribed as 5ml q6h prn
metoclopramide HCl [Reglan] 10 mg Tablet
10 mg PO DAILY PRN (Reason: anxiety)
ibuprofen 200 mg Capsule
400 mg PO HS
sucralfate 100 mg/mL suspension
1 g PO ACHS
gabapentin 250 mg/5 mL solution
100 mg PO TID
dicyclomine 10 mg capsule
20 mg PO BID
Referrals:
NONE,* [Family Provider] -
Activity Restrictions/Additional Instructions:
Please continue to follow-up with your treating physicians. Return if needed otherwise
Interventions
Interventions:
*Risk Screen - Suicide Last Done: 11/26/23 19:24
*General Assessment Last Done: 11/26/23 19:24
*Neglect/Abuse Screening Last Done: 11/26/23 19:24
ED- Fall Risk Assessment Last Done: 11/26/23 20:30
*ED COVID-19 Vaccine History Last Done: 11/26/23 19:24
Discharge Date and Time
Print Language: YAKUT
[2023-11-26 23:00] VITALS: BP 165/81
== END 2023-11-26 23:54 | disposition home or self-care (01) ==
LOC: EMR 19:19
PROVIDERS: Physician Assistant; EMERGENCY PHYSICIAN Emergency Medicine
DX: R10.9 Unspecified abdominal pain (principal); Z85.01 Personal history of malignant neoplasm of esophagus; Z87.19 Personal history of other diseases of the digestive system; Z90.49 Acquired absence of other specified parts of digestive tract; Z93.1 Gastrostomy status; Z98.84 Bariatric surgery status
CPT/HCPCS: 99284; 96374; 96361; 74177; 80053; 83690; 85025; Q9967